=== PATIENT | female | born 1995 | race Hispanic/Latino ===

== ENCOUNTER 2024-03-14 23:02 | Emergency (ER) | payer MEDICAID ==
[~2024-03-14] VITALS: Ht 154.9 cm; Wt 59.0 kg
[2024-03-14 23:03] VITALS: O2SAT 98
[2024-03-14 23:04] VITALS: BP 112/70; PULSE 99; RESP 18; TEMP 98.1
--- NOTE | 2024-03-14 23:24 | ERN ---
ED Note History of Present Illness Stated Complaint: SENT FROM [place] FOR MEDICAL CLEARANCE Chief Complaint: Medical Clearance Time Seen by MD: 23:08 Dictation: This is a 28-year-old female who was sent from [facility] for medical clearance. Apparently patient went to [place] to get her medications refilled for anxiety depression and bipolar disorder and she told them that she was 5 months and hence they sent her in for evaluation she denied any vaginal bleeding mild pelvic pain if any she is 2 para 1. She apparently was at another facility where an ultrasound OB was done and told that she was about 5 months she did not have any care so far Temperature 98 pulse 99 respirations 18 blood pressure 112/70 with a pulse oximetry of 98% Chronic problems include anxiety, bipolar depression, substance abuse Allergies: Coded Allergies: No Known Allergies (Unverified Allergy, Unknown, 03/14/24) Past Medical History Past Medical History: Anxiety, Bipolar, Depression Additional Past Medical Hx: SUBSTANCE ABUSE Surgical History: Tonsillectomy Family History: Negative Social History: Drugs : 2 Para: 1 RN Note Reviewed/Agreed w/PFSH: Yes Review of System Dictation During my evaluation she was just complaining of being hungry but otherwise no new complaints. Constitutional: Negative for fever,chills, and weight loss Eyes: Negative for injury, pain,redness, and discharge ENT: Negative for injury,pain or swelling Cardiovascular: Negative for chest pain, palpitations, and edema Respiratory: Negative for shortness of breath, cough, and wheezing, Abdomen/GI: Negative for abdominal pain, nausea, vomiting, diarrhea, and constipation Back: Negative for injury and pain : Negative for injury, bleeding and discharge MS/Extremity: Negative for injury and deformity Skin: Negative for rash, and discoloration Neuro: Negative for headache, weakness, numbness, tingling, and seizure Psych: Negative for suicide ideation, homicidal ideation, and hallucinations Initial Vital Sign VS Vital Signs Date Time Temp Pulse Resp B/P (MAP) Pulse Ox O2 Delivery O2 Flow Rate FiO2 03/14/24 23:03 98.1 99 18 112/70 98 Room Air* 0 21 Physical Exam Dictation General: awake, alert, NAD unkempt looks much older Head/Face: Normocephalic, atraumatic Eyes: PERRL, EOMI, vision at baseline ENT: oral cavity clear, TMs clear, no signs of infection Neck: Trachea midline, supple, no nuchal rigidity Cardiovascular: RRR, normal S1/S2, No MRGs, no JVD Respiratory: CTAB, no respiratory distress, No rales or wheezes Abdomen: Soft, non-tender, non-distended, normal bowel sounds, no guarding or rebound. Gravid uterus Skin: Warm, dry, normal turgor, no rash MS/Extremity: Pulses equal, no cyanosis, neurovascular intact, FROM Neuro: COAx4, GCS 15, strength 5/5, CN 2-12 intact, normal cerebellar exam, normal gait, Psych: Normal behavior, mood, and affect normal Extremities-trace edema without any palpable cords, Homans sign is negative Results (Laboratory/Radiology) Laboratory/Radiology Laboratory Tests Test 03/14/24 23:35 White Blood Count 11.3 K/uL (4.8-10.8) H Red Blood Count 3.40 MIL/uL (4.00-5.50) L Hemoglobin 10.2 g/dL (12.0-16.0) L Hematocrit 30.2 % (36-48) L Mean Corpuscular Volume 88.8 fL (79-99) Mean Corpuscular Hemoglobin 30.0 pg (27.0-33.0) Mean Corpuscular Hemoglobin Concent 33.8 g/dL (32.0-36.0) Red Cell Distribution Width 12.4 % (11.0-15.5) Platelet Count 327 K/uL (130-400) Mean Platelet Volume 10.6 fL (7.5-10.5) H Immature Granulocyte % (Auto) 1.0 % (0-1) Neutrophils (%) (Auto) 74.4 % (40.0-77.0) Lymphocytes (%) (Auto) 14.2 % (21.0-51.0) L Monocytes (%) (Auto) 7.7 % (3.0-13.0) Eosinophils (%) (Auto) 2.3 % (0.0-8.0) Basophils (%) (Auto) 0.4 % (0.0-5.0) Neutrophils # (Auto) 8.4 K/uL (1.8-7.7) H Lymphocytes # (Auto) 1.6 K/uL (1.0-4.8) Monocytes # (Auto) 0.9 K/uL (0.1-1.0) Eosinophils # (Auto) 0.26 K/uL (0.00-0.70) Basophils # (Auto) 0.05 K/uL (0.00-0.20) Absolute Immature Granulocyte (auto 0.11 K/uL (0-1) Nucleated Red Blood Cells 0.0 % (0.0-0.19) Urine Color LIGHT-YELLOW (YELLOW) Urine Appearance CLEAR (CLEAR) Urine pH 6.5 (5.0-8.0) Urine Specific [place] 1.020 (1.001-1.031) Urine Protein NEGATIVE mg/dL (NEGATIVE) Urine Glucose (UA) NEGATIVE mg/dL (NEGATIVE) Urine Ketones NEGATIVE mg/dL (NEGATIVE) Urine Occult Blood NEGATIVE (NEGATIVE) Urine Nitrate NEGATIVE (NEGATIVE) Urine Bilirubin NEGATIVE mg/dL (NEGATIVE) Urine Urobilinogen 0.2 mg/dL (0.2-1.0) Urine Leukocyte Esterase 75 Maria A/uL (NEGATIVE) H Urine RBC 2-5 /HPF (0-1) H Urine WBC 2-5 /HPF (0-1) H Urine Squamous Epithelial Cells FEW /HPF (0-2) Urine Bacteria None /HPF (None Seen) Sodium Level 137 mmol/L (136-145) Potassium Level 3.6 mmol/L (3.5-5.1) Chloride Level 103 mmol/L (101-111) Carbon Dioxide Level 27 mmol/L (21-32) Blood Urea Nitrogen 9 mg/dL (7-18) Creatinine 0.5 mg/dL (0.5-1.0) Glomerular Filtration Rate Calc 133 mL/min (>90) Random Glucose 70 mg/dL (70-105) Total Calcium 8.5 mg/dL (8.5-10.1) Human Chorionic Gonadotropin, Quant 10068 mIU/mL (0-5) H Salicylates Level < 2.8 mg/dL (2.8-20.0) L Urine Opiates Screen NEGATIVE (NEGATIVE) Acetaminophen Level < 1 mcg/mL (10-30) L Urine Barbiturates Screen NEGATIVE (NEGATIVE) Urine Phencyclidine Screen NEGATIVE (NEGATIVE) Urine Amphetamines Screen NEGATIVE (NEGATIVE) Urine Benzodiazepines Screen NEGATIVE (NEGATIVE) Urine Cocaine Screen NEGATIVE (NEGATIVE) Urine Marijuana (THC) Screen POSITIVE (NEGATIVE) H Serum Alcohol < 3 mg/dL (0-10) Labs Reviewed?: Yes EKG Comment: Twelve lead EKG done on 03/14/2024 at 11:41 p.m. showed a heart rate of 93, NH interval 221, QRS 80, QT/QTC 350/436 Impression sinus tachycardia nonspecific ST-T changes no evidence of any acute abnormalities. There was a slightly prolonged NH but no prolonged QT noted. Interpreted by ER MD Dr. Toledo ED Course ED Course Orders Procedure Category Date Status Time Alcohol, Blood LAB 03/14/24 Complete 23:13 Cbc With Differential LAB 03/14/24 Complete 23:13 Basic Metabolic Panel LAB 03/14/24 Complete 23:13 Hcg,Quantitative LAB 03/14/24 Complete 23:13 Acetaminophen LAB 03/14/24 Complete 23:13 Urinalysis Profile LAB 03/14/24 Complete 23:13 Salicylate LAB 03/14/24 Complete 23:13 Drug Screen Urine LAB 03/14/24 Complete 23:13 12 Lead Ekg Tracing- EKG 03/14/24 Logged Technical 23:13 Culture Urine KIMBERLY 03/14/24 In Process 23:50 Vital Signs Date Time Temp Pulse Resp B/P (MAP) Pulse Ox O2 Delivery O2 Flow Rate FiO2 03/14/24 23:04 98.1 99 18 112/70 98 Room Air 0 03/14/24 23:03 98.1 99 18 112/70 98 Room Air* 0 21 We will request routine labs urinalysis and urine drug screen for medical clearance Labs reviewed CBC showed a white count of 11.3 hemoglobin 10.2 platelets 327. BNP 7 with a normal limits Urine drug screen was positive for THC. Urinalysis showed positive leuko esterase but no WBCs. Serum tox levels of alcohol Tylenol are pending 1:01 a.m. serum alcohol Tylenol and salicylate levels on a unremarkable I have updated the patient about her labs and also EKG and answered all her questions She is medically cleared from my standpoint to be assessed for any psychiatric interventions. She is currently not suicidal or homicidal. Medical Decision Making MDM MDM: Differential diagnosis: Dehydration, prolonged QT interval, anemia, systemic complications due to psychiatric medications and substance abuse Rationale: Tests considered and ordered secondary to shared decision making include: Previous outside records reviewed: Old ER visits. Risk of complication and/or morbidity or mortality of patient management: None Medications-Per medication reconciliation Need for hospitalization: Patient does not meet criteria for hospitalization. Need for emergency major/minor surgery: No There are no social concerns with this patient. Prescription drug management Prescriptions will include symptomatic care Patient's prior external medical records from other ER visits were reviewed by me as indicated. Prior testing and results from previous visits were reviewed. Prior tests were taken into account with medical decision making and resource utilization, independent historian/historians were used to obtain complete medical history. I independently interpreted the test that were performed, results were reviewed by me and considered findings on radiology if ordered. Medical management and examination interpretation discussions were had by me with other qualified healthcare professionals as indicated for the patient's care. Problem List Problem List: (1) Intrauterine , incidental (2) Bipolar depression (3) Anxiety (4) Medical clearance for psychiatric admission DX & DISP Disposition: Discharge Departure Impression: Primary Impression: Medical clearance for psychiatric admission Additional Impressions: Intrauterine , incidental, Bipolar depression, Anxiety Condition: Stable Additional Instructions: Patient and the caregiver have been informed of all the diagnostic tests and the imaging conducted during the today's visit to the emergency room and has verbalized understanding of the results I have personally reviewed and interpreted all diagnostic exams performed here in the ER today as well as the vital signs documented by the nursing staff. The patient is now being discharged to have re-evaluation in the psychiatric behavioral health unit. and should follow up with the primary care physician or the specialist as directed by the ER staff. Patient has received medical clearance and is currently stable we are awaiting a psychiatric evaluation to determine the most suitable facility further needs. We will continue to monitor and provide treatment as needed until they are discharged or transferred elsewhere. Condition stable Course progressing as expected Assessment exam unchanged EFE TOLEDO MD Mar 14, 2024 23:24
[2024-03-14 23:45] LABS: BASOPHILS # (AUTO) 0.05 K/uL (0.00-0.20); BASOPHILS % (AUTO) 0.4 % (0.0-5.0); EOSINOPHILS # (AUTO) 0.26 K/uL (0.00-0.70); EOSINOPHILS % (AUTO) 2.3 % (0.0-8.0); HEMATOCRIT 30.2 % (36-48); IMMATURE GRANULOCYTE ABSOLUTE 0.11 K/uL (0-1); LYMPHOCYTES # (AUTO) 1.6 K/uL (1.0-4.8); LYMPHOCYTES % (AUTO) 14.2 % (21.0-51.0); MEAN CORPUSCULAR HGB CONC 33.8 g/dL (32.0-36.0); MEAN CORPUSCULAR VOLUME 88.8 fL (79-99); MONOCYTES # (AUTO) 0.9 K/uL (0.1-1.0); MONOCYTES % (AUTO) 7.7 % (3.0-13.0); NEUTROPHILS # (AUTO) 8.4 K/uL (1.8-7.7); NEUTROPHILS % (AUTO) 74.4 % (40.0-77.0); PLATELET COUNT (AUTO) 327 K/uL (130-400); RED CELL DISTRIBUTION WIDTH 12.4 % (11.0-15.5); WHITE BLOOD COUNT (AUTO) 11.3 K/uL (4.8-10.8)
[2024-03-14 23:48] LABS: APPEARANCE,URINE CLEAR (CLEAR); BILIRUBIN,URINE NEGATIVE (NEGATIVE); COLOR,URINE LIGHT-YELLOW (YELLOW); GLUCOSE, URINE (UA) NEGATIVE (NEGATIVE); KETONES,URINE NEGATIVE (NEGATIVE); LEUKOCYTE ESTERASE ,URINE 75 Leu/uL (NEGATIVE); NITRATE,URINE NEGATIVE (NEGATIVE); OCCULT BLOOD,URINE NEGATIVE (NEGATIVE); PH,URINE 6.5 (5.0-8.0); PROTEIN,URINE NEGATIVE (NEGATIVE); UROBILINOGEN,URINE 0.2 mg/dL (0.2-1.0)
[2024-03-14 23:50] LABS: ADD UA MICROSCOPIC YES
[2024-03-14 23:52] LABS: MUCUS,URINE RARE LPF (None Seen); SQUAMOUS EPITHELIAL CELL,UR FEW /HPF (0-2)
[2024-03-14 23:54] LABS: AMPHET/METH SCREEN,URINE NEGATIVE (NEGATIVE); BARBITURATE SCREEN, URINE NEGATIVE (NEGATIVE); BENZODIAZEPINES SCREEN,URINE NEGATIVE (NEGATIVE); CANNABINOID SCREEN,URINE POSITIVE (NEGATIVE); COCAINE SCREEN,URINE NEGATIVE (NEGATIVE); OPIATE SCREEN,URINE NEGATIVE (NEGATIVE); PHENCYCLIDINE SCREEN,URINE NEGATIVE (NEGATIVE)
[2024-03-15 00:01] LABS: CARBON DIOXIDE 27 mmol/L (21-32); CHLORIDE 103 mmol/L (101-111); CREATININE 0.5 mg/dL (0.5-1.0); GLOMERULAR FILTR. RATE CALC 133 mL/min (>90); GLUCOSE,RANDOM 70 mg/dL (70-105); POTASSIUM 3.6 mmol/L (3.5-5.1); SODIUM SERUM 137 mmol/L (136-145); UREA NITROGEN, BLOOD 9 mg/dL (7-18)
[2024-03-15 00:39] LABS: HCG,QUANTITATIVE 13325 mIU/mL (0-5)
[2024-03-15 00:42] LABS: ACETAMINOPHEN < 1 mcg/mL (10-30); ALCOHOL, BLOOD < 3 mg/dL (0-10); SALICYLATE < 2.8 mg/dL (2.8-20.0)
--- NOTE | 2024-03-15 01:19 | NUR ---
CALLED REPORT TO SUZIE OHARA. GAVE REPORT TO MONIE PENN.
--- NOTE | 2024-03-15 01:26 | NUR ---
RIGOBERTO CALLED FOR COURTESY RIDE TO SUZIE BROWER, SPOKE WITH OFFICER VALENTE, WILL SPEAK WITH SURGICAL NURSE PRACTITIONER AND CALL BACK.
--- NOTE | 2024-03-15 03:13 | NUR ---
[facility] CONTACTED FOR NON EMERGENT TRANSFER TO [facility]
--- NOTE | 2024-03-15 17:50 | EKG ---
[facility] Test Date: 2024-03-14 Test Time: 23:41:03 Pat Name: CT CHAN Department: ED Room: Gender: F Budget And Policy Analyst: [id number] : 1995 Requested By: EFE TOLEDO Order Number: [id number] Reading MD: Rod Hebert Measurements Intervals [place] Rate: 93 P: 38 ME: 221 QRS: 69 QRSD: 80 T: 35 QT: 350 QTc: 436 Interpretive Statements Sinus rhythm Prolonged ME interval No previous ECG available for comparison Electronically Signed On 03-16-2024 09:54:57 REVENUE MANAGER by Rod Hebert Please click the below link to view image of tracing.
== END 2024-03-15 05:18 ==
LOC: EDH 23:02
DX: O99.341 Other mental disorders complicating pregnancy, first trimester (principal); F31.9 Bipolar disorder, unspecified; F41.9 Anxiety disorder, unspecified; R10.2 Pelvic and perineal pain; Z79.899 Other long term (current) drug therapy; Z3A.01 Less than 8 weeks gestation of pregnancy; Z90.89 Acquired absence of other organs
CPT/HCPCS: 99285; 80048; 80305; 84702; 85025; 87086; 36415; 93005; 81001; G0481